=== PATIENT | male | born 1985 | race Caucasian/White ===

== ENCOUNTER 2018-01-03 13:08 | Emergency (ER) | payer SELFPAY ==
[2018-01-03 13:15] VITALS: BP 139/78
[2018-01-03 15:07] LABS: APPEARANCE,URINE CLEAR; BILIRUBIN,URINE NEGATIVE (NEGATIVE); COLOR,URINE YELLOW; GLUCOSE, URINE NEGATIVE (NEGATIVE); KETONES,URINE NEGATIVE (NEGATIVE); LEUKOCYTE ESTERASE,URINE NEGATIVE (NEGATIVE); NITRITE,URINE NEGATIVE (NEGATIVE); PROTEIN,URINE NEGATIVE (NEGATIVE); URINE SPECIFIC GRAVITY 1.016; UROBILINOGEN,URINE NEGATIVE mg/dL (<2.0)
[2018-01-03] MEDS ORDERED: KETOROLAC TROMETHAMINE 60 MG/2 ML SDV IM ONE (15:34)
[2018-01-03] MEDS ORDERED: HYDROCODONE/ACETAMINOPHEN 5-325 MG TABLET PO ONE (15:34)
[2018-01-03] MEDS ORDERED: TAMSULOSIN HCL 0.4 MG CAP.SR.24H PO ONE (15:34)
--- NOTE | 2018-01-03 16:04 | ER Document Report ---
ED General - General Chief Complaint: Urinary Problem Stated Complaint: URINARY ISSUE Time Seen by Provider: 01/03/18 14:13 Mode of Arrival: Ambulatory Information source: Patient, Relative Notes: 32-year-old male with no significant past medical history presents with complaint of right flank pain, dysuria that started 4 days prior to arrival. Patient describes the flank pain as sharp, initially intermittent but now constant. Patient has had dysuria for 4 days but denies any hematuria or penile discharge. He denies any previous history of kidney stones. He does have associated nausea without vomiting. He denies any fever, chills, chest pain, shortness of breath, abdominal pain. He is otherwise healthy, takes no medications on a daily basis. TRAVEL OUTSIDE OF THE [place] IN LAST 30 DAYS: No - HPI Onset: Other Onset/Duration: Gradual, Persistent, Worse Quality of pain: Stabbing Severity: Mild Associated symptoms: Chills, Nausea Exacerbated by: Movement Relieved by: Denies Similar symptoms previously: No Recently seen / treated by doctor: No - Related Data Allergies/Adverse Reactions: Penicillins Allergy (Verified 01/03/18 13:12) Sulfa (Sulfonamide Antibiotics) Allergy (Verified 01/03/18 13:12) Past Medical History - General Information source: Patient, Relative, [facility] Records - Social History Smoking Status: Never Smoker Chew tobacco use (# tins/day): No Drug Abuse: None Lives with: Family Family History: Reviewed & Not Pertinent Patient has suicidal ideation: No Patient has homicidal ideation: No - Medical History Medical History: Negative Renal/ Medical History: Denies: Hx Peritoneal Dialysis Review of Systems - Review of Systems Notes: REVIEW OF SYSTEMS: CONSTITUTIONAL : Denies fever, chills, or sweats. Denies recent illness. Denies weight loss, recent hospitalizations. EENT: Denies visual changes, eye pain. Denies nasal or sinus congestion or discharge. Denies sore throat, oral lesions, difficulty swallowing. CARDIOVASCULAR: Denies chest pain. Denies palpitations. Denies lower extremity edema. RESPIRATORY: Denies cough, cold, or chest congestion. Denies shortness of breath, wheezing. GASTROINTESTINAL: Denies abdominal pain or distention. Denies vomiting, or diarrhea. Denies blood in vomitus, stools, or per rectum. Denies black, tarry stools. Denies constipation. GENITOURINARY: Denies difficulty urinating, painful urination, frequency, blood in urine, MUSCULOSKELETAL: Denies neck pain or stiffness. Denies joint pain or swelling. SKIN: Denies rash, lesions or sores. HEMATOLOGIC : Denies easy bruising or bleeding. LYMPHATIC: Denies swollen glands. NEUROLOGICAL: Denies confusion or altered mental status. Denies passing out or loss of consciousness. Denies dizziness or lightheadedness. Denies headache. Denies weakness or paralysis. Denies problems difficulty with ambulation, slurred speech. Denies sensory loss, numbness, or tingling. Denies seizures. PSYCHIATRIC: Denies anxiety or stress. Denies depression, suicidal ideation, or homicidal ideation. Denies visual or auditory hallucinations. Physical Exam - Vital signs Vitals: Temp Pulse Resp BP Pulse Ox 98.4 F 81 16 139/78 H 99 01/03/18 13:15 01/03/18 13:15 01/03/18 13:15 01/03/18 13:15 01/03/18 13:15 Interpretation: Hypertensive. No: Tachycardic, Febrile - Notes Notes: PHYSICAL EXAMINATION: GENERAL: Well-appearing, patient pacing around the room. HEAD: Atraumatic, normocephalic. EYES: Pupils equal round and reactive to light, extraocular movements intact, sclera anicteric, conjunctiva are normal. ENT: Nares patent, oropharynx clear without exudates. Moist mucous membranes. NECK: Normal range of motion, supple without lymphadenopathy LUNGS: Breath sounds clear to auscultation bilaterally and equal. No wheezes rales or rhonchi. HEART: Regular rate and rhythm without murmurs ABDOMEN: Soft, nontender, nondistended abdomen. No guarding, no rebound. No masses appreciated. Right CVA tenderness Musculoskeletal: Normal range of motion, no pitting or edema. No cyanosis. NEUROLOGICAL: Cranial nerves grossly intact. Normal speech, normal gait. Normal sensory, motor exams PSYCH: Normal mood, normal affect. SKIN: Warm, Dry, normal turgor, no rashes or lesions noted. Course - Re-evaluation Re-evalutation: 01/04/18 13:12 Laboratory 01/03/18 01/03/18 13:40 14:40 Urine Color YELLOW Urine Appearance CLEAR Urine pH 5.0 Ur Specific [place] 1.016 Urine Protein NEGATIVE Urine Glucose (UA) NEGATIVE Urine Ketones NEGATIVE Urine Blood MODERATE H Urine Nitrite NEGATIVE Urine Bilirubin NEGATIVE Urine Urobilinogen NEGATIVE Ur Leukocyte Esterase NEGATIVE Urine WBC (Auto) 2 Urine RBC (Auto) 7 Squamous Epi Cells Auto <1 Urine Mucus (Auto) FEW Urine Ascorbic Acid NEGATIVE Chlamydia DNA (PCR) NOT DETECTED N.gonorrhoeae DNA (PCR) NOT DETECTED 32-year-old male presents with 4 days of right flank pain and dysuria. Upon arrival vitals reviewed and within normal limits. Patient does not appear toxic but he does appear to be in pain and he is pacing around the room. Urinalysis does not show evidence of infection but does show a moderate amount of blood. History is consistent with urolithiasis. We did discuss imaging which the patient would like to avoid at this time. He did receive morphine, Toradol, Zofran and Flomax during his ED course. Home-going prescriptions for the same medications were provided. Bedside ultrasound was performed and showed no evidence of hydronephrosis. Patient was advised that if pain continues he should return to the emergency room at that point we would likely obtain a CAT scan. Urine strainer was provided to the patient. Patient provided the opportunity to ask questions, and express concerns. Discharge instructions discussed. Patient is agreeable with discharge home. Return indications explained and discussed with the patient who displays understanding. Patient encouraged to return to the emergency department immediately with any concerns. - Vital Signs Vital signs: Temp Pulse Resp BP Pulse Ox 98.4 F 81 16 139/78 H 99 01/03/18 13:15 01/03/18 13:15 01/03/18 13:15 01/03/18 13:15 01/03/18 13:15 - Laboratory Laboratory results interpreted by me: 01/03/18 13:40 Urine Blood MODERATE H Discharge - Discharge Clinical Impression: Flank pain Hematuria Qualifiers: Hematuria type: unspecified type Qualified Code(s): R31.9 - Hematuria, unspecified Urolithiasis Qualifiers: Urinary calculus location: other lower urinary tract location Qualified Code(s) : N21.8 - Other lower urinary tract calculus Condition: Good Disposition: HOME, SELF-CARE Instructions: Hematuria ([facility]), Kidney Stone ([facility]), Toradol Injection ([facility]) Prescriptions: Hydrocodone/Acetaminophen [[place] 5-325 mg Tablet] 1 tab PO Q6H #12 tablet Ibuprofen [Motrin 600 Mg Tablet] 600 mg PO TID #15 tablet Ondansetron [Zofran Odt 4 mg Tablet] 1 - 2 tab PO Q4H PRN #15 tab.rapdis PRN Reason: For Nausea/Vomiting Tamsulosin HCl [Flomax 0.4 mg Cap.sr] 0.4 mg PO DAILY #7 cap.sr.24h Forms: Elevated Blood Pressure
[2018-01-03 18:06] LABS: CHLAM PCR NOT DETECTED (NOT DETECT); GON PCR NOT DETECTED (NOT DETECT)
== END 2018-01-03 16:39 | disposition home or self-care (01) ==
LOC: ER 13:08
DX: N21.8 Other lower urinary tract calculus (principal); R31.9 Hematuria, unspecified; R10.9 Unspecified abdominal pain; R30.0 Dysuria; R11.0 Nausea
CPT/HCPCS: 99283; 96372; 81001; 87491; 87591; J1885

== ENCOUNTER 2019-05-22 11:16 | Emergency (ER) | payer SELFPAY ==
[2019-05-22 12:01] VITALS: BP 144/83
[2019-05-22] MEDS ORDERED: KETOROLAC TROMETHAMINE 60 MG/2 ML SDV IM ONE (12:10)
[2019-05-22] MEDS ORDERED: DEXAMETHASONE SOD PHOS INJ 10 MG/1 ML VIAL IM ONE (12:10)
--- NOTE | 2019-05-22 12:16 | ER Document Report ---
HPI - HPI Time Seen by Provider: 05/22/19 12:02 Pain Level: 5 Context: 34-year-old healthy male presents the emergency department chief complaint of right foot pain. Patient states that the pain started yesterday, he has some redness and swelling on the dorsal aspect of the left ankle, and severe pain. Patient states that he has had this occur in the past intermittently but never this severe. 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 Patient denies fevers or chills, acute shortness of breath, chest pain, diaphoresis, nausea or vomiting. - CONSTITUTIONAL Constitutional: DENIES: Fever, Chills - MUSCULOSKELETAL Musculoskeletal: REPORTS: Extremity pain - Right Foot - DERM Skin Color: Normal Past Medical History - Social History Smoking Status: Never Smoker Chew tobacco use (# tins/day): No Frequency of alcohol use: None Drug Abuse: None Family History: Reviewed & Not Pertinent Patient has suicidal ideation: No Patient has homicidal ideation: No Renal/ Medical History: Denies: Hx Peritoneal Dialysis Vertical Provider Document - CONSTITUTIONAL Notes: PHYSICAL EXAMINATION: Reviewed vital signs and charting by RN GENERAL: Alert, interacts well. No acute distress. HEAD: Normocephalic, atraumatic. EYES: Pupils equal and round. Extraocular movements intact. ENT: Oral mucosa moist, tongue midline. NECK: Full range of motion. Trachea midline. EXTREMITIES: Moves all 4 extremities spontaneously. Mild erythema of the dorsal medial aspect of the right foot with some edema and tenderness to palpation, strong 2+ DP and PT pulses of the right foot with brisk cap refill PSYCH: Normal affect, normal mood. SKIN: Warm, dry, normal turgor. No rashes or lesions noted. - INFECTION CONTROL TRAVEL OUTSIDE OF THE [place] IN LAST 30 DAYS: No Course - Re-evaluation Re-evalutation: 05/22/19 12:17 Patient presents with left foot pain that has been intermittent but had had an acute flareup in the last 12 hours. Patient has no formal diagnosis of gout but symptoms are consistent with that considering his history. He is able to move his ankle, he is afebrile, and there is no evidence of toxicity so I very low suspicion for septic arthritis. Plan is to give him dexamethasone 10 mg IM once, Toradol 60 mg IM once, give him a prescription for naproxen and a steroid taper. An x-ray was obtained and is pending. 05/22/19 13:09 X-ray negative. Patient is stable for discharge. - Vital Signs Vital signs: Temp Pulse Resp BP Pulse Ox 98.3 F 80 16 144/83 H 98 05/22/19 11:34 05/22/19 11:34 05/22/19 11:34 05/22/19 11:34 05/22/19 11:34 Discharge - Discharge Clinical Impression: Right foot pain Condition: Good Disposition: HOME, SELF-CARE Additional Instructions: You were seen for right foot pain. Is unclear if this is gout but we cannot diagnose it in the emergency department therefore the blood tests are not useful. We did x-ray your foot which did not show any evidence of stress fractures or any crystals. It is important that you do try to establish primary care you can do this through the [facility]. It does take a couple of months to establish care with them but once you are and they are a great resource for primary care. You did receive a steroid shot here in the emergency department and Toradol. I am also going to put you on a steroid taper for 10 days. Please take naproxen 500 mg every 12 hours with food and/or milk and Tylenol 1000 mg every 6 hours for pain. Return to the emergency department if you are unable to move her foot at all, you develop fevers, worsening redness or swelling of your entire leg, you develop acute shortness of breath or chest pain, or you have any other concerning symptoms. Prescriptions: Prednisone [Deltasone 10 mg Tablet] 10 mg PO ASDIR PRN #21 tablet PRN Reason: Naproxen 500 mg PO Q12H #60 tablet
--- NOTE | 2019-05-22 12:51 | RADIOLOGY REPORT (SQ) ---
EXAM DESCRIPTION: FOOT RIGHT COMPLETE COMPLETED DATE/TIME: 05/22/2019 12:41 pm REASON FOR STUDY: swelling R foot/ankle, ?tophi COMPARISON: None. NUMBER OF VIEWS: Three views. TECHNIQUE: AP, lateral and oblique without weight bearing radiographic images acquired of the right foot. LIMITATIONS: None. FINDINGS: MINERALIZATION: Normal. BONES: No acute fracture or dislocation. No worrisome bone lesions. No significant osteophytes. JOINTS: No erosions. No george-articular osteopenia. No chondrocalcinosis. SOFT TISSUES: No swelling. No calcifications. OTHER: No other significant finding. IMPRESSION: NEGATIVE STUDY OF THE RIGHT FOOT. NO EXPLANATION FOR PAIN. TECHNICAL DOCUMENTATION: JOB ID: [id number]- All Rights Reserved Reading location - IP/workstation name: [email or web address]
== END 2019-05-22 13:15 | disposition home or self-care (01) ==
LOC: ER 11:16
DX: M79.671 Pain in right foot (principal)
CPT/HCPCS: 99283; 96374; 96375; 73630; J1885; J1100